=== PATIENT | female | born 1950 | race Caucasian/White ===

== ENCOUNTER → 2016-07-16 | Outpatient (CLI) | payer OTHER ==
[~2016-07-16] MED LIST: ANTIOXIDANT FO1 EACH PO; ASCORBIC ACID500 MG PO; ASPIRIN LO-DOSE81 MG PO; CIPRO500 MG PO; CRANBERRY300 MG PO; ELAVIL50 MG PO; IRON65 PO; KEFLEX250 MG PO; OMEGA-31000 MG PO; THERAGRAN-M1 TAB PO; TRUSOPT 2% OPTH10 ML OPHTH; TYLENOL325 MG PO; VITAMIN D32000 UNIT PO; VITAMIN E400 UNI2 PO; XALATAN2.5 ML OPHTH
== END | disposition disaster alternative care site (69) ==
LOC: GBCOE 11:30
DX: Z12.31 Encounter for screening mammogram for malignant neoplasm of breast (principal)
CPT/HCPCS: G0202

== ENCOUNTER → 2016-07-16 | Outpatient (CLI) | payer OTHER | END | disposition disaster alternative care site (69) | LOC: LGSMG 13:47 | DX: D64.9 Anemia, unspecified (principal) ==

== ENCOUNTER → 2016-07-24 | Outpatient (CLI) | payer OTHER ==
--- NOTE | ~2016-07-24 | ECHO ---
Transthoracic Echocardiography Report (TTE) Demographics Patient Name AMY TERESA Date of Study 07/24/2016 L Patient Number [id number] Visit Number [id number] Date of 1950 Room Number Gender Female Number Age 66 year(s) Referring Gail Hidalgo MD Post Exchange Manager Bayron RVT, RDCS Physician Danyelle Physician Interpreting Silvio John MD Bag Machine Tender Physician Supervising Ordering Gail Hidalgo MD, MD/MLP Physician Nurse Stress Fish Net Maker Conclusions Contractility Score Summary Normal Left Ventricular contractility was noted. Summary Normal LV/RV size and systolic function. The estimated left ventricular ejection fraction is 60-65%. Mild concentric left ventricular hypertrophy. Diastolic assessment reveals Grade I diastolic dysfunction. There is mild aortic regurgitation by color Doppler. Mild tricuspid regurgitation by color Doppler. Procedure Type of Study TTE procedure:2D Echocardiogram, M-Mode, Doppler , Color Doppler. Procedure Date Date: 07/24/2016 Start: 09:53 AM Study Location: Echo Lab Technical Quality: Adequate visualization Indications:Dyspnea with exertion. Appropriate Use Criteria: 9 Patient Status: Routine HR: 73 bpm BP: 111/53 mmHg M-Mode/2D Measurements LV Diastolic Dimension: 3.61 cm LV Systolic Dimension: 2.39 cm LV Septum Diastolic: 1.24 cm LV PW Diastolic: 0.98 cm AO Root Dimension: 2.9 cm Cardiac Output: 3.56 l/min AV Cusp Separation: 1.4 cm RV Diastolic Dimension: 2.47 cm LA volume: 28 ml LVOT: 1.7 cm RV Base: 3.35 cm LVOT VTI: 21.5 cm RV Mid: 2.57 cm LV Stroke volume: 48.78 ml TAPSE: 3.08 cm TDI-S': 16.1 cm/s Doppler Measurements AV Peak Velocity: 1.28 m/s MV Peak E-Wave: 0.83 m/s AV Peak Gradient: 6.55 mmHg MV Peak A-Wave: 1 m/s AV Mean Gradient: 4 mmHg MV E/A Ratio: 0.83 LVOT Peak Velocity: 1 m/s MV P1/2t: 74 msec AV P1/2t: 1055 msec TR Gradient:26.21 mmHg PV Peak Velocity: 0.86 m/s Estimated RAP:3 mmHg PV Peak Gradient: 2.95 mmHg Estimated RVSP: 29 mmHg Estimated PASP: 29.21 mmHg E' Septal Velocity: 0.08 m/s A' Septal Velocity: 0.11 m/s E' Lateral Velocity: 0.14 m/s A' Lateral Velocity: 0.18 m/s Findings Left Ventricle Mild concentric left ventricular hypertrophy. Diastolic assessment reveals Grade I diastolic dysfunction. Right Ventricle Normal right ventricle structure and function. Left Atrium Normal left atrial size. Right Atrium Normal right atrial size. Mitral Valve Mild mitral annular calcification. Trivial mitral regurgitation by color Doppler. Aortic Valve The aortic valve is moderately sclerotic. There is mild aortic regurgitation by color Doppler. Tricuspid Valve Mild tricuspid regurgitation by color Doppler. Pulmonic Valve Normal pulmonic valve structure and function. Pericardial Effusion No evidence of pericardial effusion. Pleural Effusion No evidence of pleural effusion. Contractility Score LV regional wall motion:(0-Non visualized 1-Normal 2-Hypokinesis 3-Akinesis 4-Dyskinesis 5-Aneurysm) Signature dtt: RANDI MARCUS dtd: 07/24/16 0953 Physician Self Edit
--- NOTE | ~2016-07-24 | ESTC ---
Cardiac Perfusion Imaging Demographics Patient Name BRII Wright Gender Female Patient Number [id number] Race Visit Number [id number] Ethnicity Corporate ID Room Number Accession Number [id number] Height 67 inches Date of 1950 Weight 187 pounds Bharathi Bui Date of study 07/24/2016 Physician Silvio John MD Supervising /AIMEEP Gloria Tracy APRN NM Technologist Chayo Bear Ordering Physician Gail Hidalgo MD Stress avionic technician Stress ECG Reading Gloria Tracy APRN Nurse Yossi Boykin RN Physician Maria Rothman RN The procedure was explained in detail to the patient. Risks, complications and alternative treatments were reviewed. Written consent was obtained. Procedure Procedure Type: Nuclear Stress Test:Exercise, Cardiolite Stress Test Procedure Start time: 07/24/2016 08:45 Indications: Dyspnea with exertion. Risk Factors The patient risk factors include:obesity and family history of premature CAD. Conclusions Summary Perfusion Images: The overall quality of the study is good. Left ventricular cavity is noted to be normal on the stress and normal on the rest images. There is no evidence of abnormal lung activity. The right ventricle is not visualized an cannot be assessed. Impression ECG portion of the exercise stress test is clinically negative for ischemia by diagnostic criteria. Patient walked for 6 minutes according to Robert protocol to achieve 7 METS and reached 96% of MPHR. Myocardial perfusion imaging is mildly abnormal. The images reveal a very tiny sized reversible defect in the distal anterolateral wall consistent with minimal ischemia . Overall left ventricular systolic function was normal. Calculated LVEF is 64% and TID tatio is 1.21. This is a low risk stress test. There are no previous studies for comparison . Stress Protocols Resting ECG Normal sinus rhythm. Pre-stress physical exam: Patient assessed by Kimberly BABIN prior to testing. Chest - CTA Cardio - RRR, S1, S2 Peak HR:146 bpm HR response: Appropriate Peak BP:174/68 mmHg BP response: Appropriate Predicted HR: 154 bpm HR/BP product:55872 % of predicted HR: 95 Reason for termination:Target heart rate ECG Findings No ECG changes suggestive of ischemia. Arrhythmias No rhythm abnormality. Symptoms Shortness of breath. Complications Procedure complication: None. Stress Interpretation Patient walked for 6 minutes through 2 stages of ROBERT protocol. Appropriate hemodynamic response to exercise. No significant ST-T wave changes with exercise. EKG portion is negative for ischemia by diagnostic criteria. The Sanchez Treadmill score was 3.5 .This corresponds to a moderate risk stress test. Will correlate with nuclear images. Imaging Results Summed scores - Summed stress score: 4 - Summed rest score: 0 - Summed difference score: 4 Stress ejection Ejection fraction:64 % EDV :83 ml ESV :30 ml Stroke volume :53 ml LV mass :137 gr Imaging Protocols Rest Stress Isotope:Tc99m Sestamibi IV Isotope: Tc99m Sestamibi IV Isotope dose:13.3 mCi Isotope dose:40.7 mCi Date:07/24/2016 07:32 Date:07/24/2016 09:30 Technique: SPECT Technique: Gated Supine SPECT Supine Scan Time:45-60 minutes post Scan Time:45-60 minutes post injection injection Medical History Admission Data Admission date: 07/24/2016 Admission Time: 07:07 Hospital Status: Outpatient. Signatures dtt: RANDI MARCUS dtd: 07/24/16 0845 Physician Self Edit
== END | disposition disaster alternative care site (69) ==
LOC: GRAD 07:07
DX: R06.02 Shortness of breath (principal); E66.9 Obesity, unspecified; I51.7 Cardiomegaly; I35.1 Nonrheumatic aortic (valve) insufficiency; Z86.79 Personal history of other diseases of the circulatory system; Z82.49 Family history of ischemic heart disease and other diseases of the circulatory system
CPT/HCPCS: A9500

== ENCOUNTER 2016-09-21 20:04 | Inpatient (IN) | payer OTHER, MEDICARE ==
[~2016-09-21] VITALS: Ht 171.4 cm; Wt 86.9 kg
--- NOTE | ~2016-09-21 | ER ---
PATIENT'S NAME: AMY TERESA [facility] AGE: 66 Y [address] ROOM: [place] [address] LOCATION: GPCU ADMIT DATE: 09/21/2016 ER/Outpatient Report DISCHARGE DATE: FAMILY PHYSICIAN: DOROTHY DOBSON MD ATTENDING PHYSICIAN: Kiel PEDROZA Admission date and time documented on the medical record. I saw the patient at 2015 hours. CHIEF COMPLAINT: Fever with shaking chills and dysuria. HISTORY OF PRESENT ILLNESS: This patient is a 66-year-old female, who presented to the emergency room with approximately 24-hour history of fever. She has had some shaking chills accompanied with the fever. Took Tylenol at 1800 hours prior to coming into the emergency room. Had generalized weakness. She has dysuria, frequency. Chronic diarrhea. Some nausea, but no vomiting. Lower suprapubic abdominal tenderness. Low back discomfort. No chest pain, cough, shortness of breath. No headache, eyes, ears, nose, throat, neck, or spine pain. No fall or trauma. No lightheadedness, dizziness, syncope, or near syncope. Other than present fever and symptoms, she has had no coughs, colds or flus. No joint or muscle swelling, redness, or pain. No skin eruptions or rash. No incontinence of stool or urine. No history of neuro changes, psych issues, endocrine problems. HOME MEDICATIONS: See attached medication list. ALLERGIES: REGLAN, KEFLEX, CIPRO, LEVAQUIN, AMPICILLIN. SOCIAL HISTORY: Nonsmoker, nondrinker. SIGNIFICANT PAST MEDICAL HISTORY: Cholelithiasis, nephrolithiasis, Cervical cancer, chronic diarrhea, diverticulosis, diverticulitis, recurrent urinary tract infections. OPERATIONS: Tubal ligation, lithotripsy, multiple cystoscopies with stent placements, right nephrectomy, hysterectomy, appendectomy, tonsillectomy, colon resection x2, radiation therapy, chemotherapy, ventral herniorrhaphy. REVIEW OF SYSTEMS: PATIENT'S NAME: AMY TERESA [facility] AGE: 66 Y [address] ROOM: [place] [address] LOCATION: GPCU ADMIT DATE: 09/21/2016 ER/Outpatient Report DISCHARGE DATE: FAMILY PHYSICIAN: DOROTHY DOBSON MD ATTENDING PHYSICIAN: Kiel PEDROZA All systems reviewed by me are negative with exception of those discussed in the history of present illness. PHYSICAL EXAMINATION: VITAL SIGNS: Temperature 101.1 tympanic, pulse 97 regular, respirations 16, blood pressure 123/59, O2 saturation on room air was 98%. [place] Coma Scale was 15. HEAD: Normocephalic. No abrasion, contusion, laceration, swellings of the scalp or face. EYES: Extraocular muscles intact. PERRL. EARS: Clear TMs bilaterally. NOSE: Clear. THROAT: Clear. Mucous membranes little dry. NECK: No nuchal rigidity. No thyromegaly or cervical lymphadenopathy. No tenderness to palpation. Full range of motion. SPINE: Nontender. No deformity. LUNGS: Clear. Good air flow. No rales, rhonchi, or wheezes. HEART: Regular. Pulses are palpable. No chest wall or ribcage pain to palpation. No deformity. ABDOMEN: Soft. Some suprapubic tenderness to deep palpation. No distention. No true guarding or rigidity. No rebound tenderness. Active bowel tones. No organomegaly or abnormal mass palpable. No CVA tenderness. EXTREMITIES: No peripheral edema, cyanosis, or deformity. Neurovascularly intact. SKIN: Clear. No skin eruptions or rash. IMAGING DATA: Chest x-ray showed no acute infiltrate or changes. We will review x-ray with the radiologist. LABORATORY DATA: Procalcitonin was 0.15. Lactate was 1.0. Urine showed full field whites, 10- 20 reds, 2-5 epithelial cells, many bacteria with positive nitrites on dipstick. Culture pending. Two blood cultures drawn, results pending. White count 21595, 78 segs, 11 lymphs, 10 monos, hemoglobin 10.9, hematocrit 32.6, platelet count 187,000. Protime 10.7, INR 1.02. CMS was normal except for a low potassium of 3.3, low CO2 content of 16, elevated glucose 159, low calcium of 8.1, elevated creatinine 1.5, low GFR 36. CRP was 11.50. EMERGENCY DEPARTMENT COURSE: I did start the patient on IV normal saline, fluids. Gave her 2 L in the emergency room IV then 150 mL an hour. Gave her Zofran 4 mg IV in the emergency room for nausea. Start her on meropenem 500 mg IV here in the emergency department. Time zero for this patient is 2115 hours. PATIENT'S NAME: AMY TERESA [facility] AGE: 66 Y [address] ROOM: [id number] [place] [id number] [facility] ADMIT DATE: 09/21/2016 ER/Outpatient Report DISCHARGE DATE: FAMILY PHYSICIAN: DOROTHY DOBSON MD ATTENDING PHYSICIAN: Kiel PEDROZA IMPRESSION: 1. Fever with shaking chills, rigors, generalized weakness, nausea, etiology urinary tract infection suspect SIRS with possibility of sepsis, awaiting cultures. 2. History of cervical cancer status post hysterectomy, radiation therapy, chemotherapy. She has resultant chronic diarrhea because of the radiation therapy. 3. History of nephrolithiasis with atrophied right kidney with right nephrectomy. 4. History of diverticulosis, diverticulitis. PLAN: I did discuss the patient with hospitalist, Dr. Pderoza. Dr. Pedroza did come down to the emergency room to examine the patient. We will admit the patient to PCU telemetry for further evaluation and treatment. Discussion ensued with the patient and her family regarding my findings and recommendations, they understand and agreed with treatment plan. Accumulated critical care time 30 minutes. MD NADEGE GUERRERO/modl /[id number] d: 09/21/162310 t: 09/22/16 1821, OUTPATIENT REPORT
--- NOTE | ~2016-09-21 | CON ---
PATIENT'S NAME: AMY TERESA [facility] AGE: 66 Y [address] ROOM: [id number] [place], [place] [address] LOCATION: GPCU ADMIT DATE: 09/21/2016 Consultation DISCHARGE DATE: FAMILY PHYSICIAN: DOROTHY DOBSON MD ATTENDING PHYSICIAN: Kiel GARCIA DATE OF CONSULTATION: 09/22/2016 REFERRING PHYSICIAN: JOSE RODRIGUEZ MD CHIEF COMPLAINT: Recurrent urinary tract infection. HISTORY OF PRESENT ILLNESS: The patient is a pleasant, 66-year-old female who was admitted during this hospitalization for fever with shaking chills and dysuria. She had underwent further evaluation including a urinalysis with findings including nitrite- positive urine with 500 leukocytes and many bacteria. Her white blood cell count was also slightly elevated at 13. Her serum creatinine level was 1.5. She has a long, complicated medical history including cervical cancer for which she underwent resection and radiation. Her course had been complicated by radiation cystitis and radiation involvement of her distal right ureter. She ultimately developed issues with recurrent right nephrolithiasis requiring multiple procedures over time including multiple extracorporeal shockwave lithotripsies, ureteroscopy with stone extractions, and laser lithotripsy. She was also noted on cystoscopy by Dr. Mckoy to have findings consistent with radiation cystitis. She was also noted on ureteroscopy to have radiation changes of her right ureter. She had underwent a CT scan on August 17, 2013, with findings consistent with [id number] right hydronephrosis and atrophic right kidney with normal-appearing left kidney with no left hydronephrosis. She had also had issues with recurrent urinary tract infections as well as ongoing intermittent right flank pain. She then ultimately underwent intervention with an attempt at right laparoscopic robotic-assisted radical nephrectomy, but given significant adhesions and radiation changes, we were unable to safely complete this laparoscopically, and so we converted over to an open approach with the assistance of Dr. Cortés and performed an open right nephrectomy on September 30, 2013. The patient has since been following with Dr. Mckoy routinely for her recurrent urinary tract infections. The patient states that Dr. Mckoy initially had her on some preventative Macrobid and most recently switched over to Keflex. She has denied any significant history of left flank pain. She did undergo a CT scan during this hospitalization with findings including just some mild left hydronephrosis with some perinephric stranding, but no obvious urinary calculi including no ureteral calculi on CT scan. She was admitted for hydration and antibiotic therapy, and her white blood cell count did come down this morning to 7.0, and her creatinine improved to 1.4. PATIENT'S NAME: BRII [facility] AGE: 66 Y [address] ROOM: [place] [address] LOCATION: GPCU ADMIT DATE: 09/21/2016 Consultation DISCHARGE DATE: FAMILY PHYSICIAN: DOROTHY DOBSON MD ATTENDING PHYSICIAN: Kiel GARCIA PAST MEDICAL HISTORY: 1. History of cervical cancer, status post resection and external beam radiation therapy. 2. Radiation cystitis. 3. History of nephrolithiasis. 4. Recurrent urinary tract infections. 5. Chronic diarrhea. 6. Diverticulosis. 7. Diverticulitis. 8. History of cholelithiasis. PAST SURGICAL HISTORY: 1. . 2. Appendectomy. 3. Tubal ligation. 4. Tonsillectomy. 5. Left breast biopsy. 6. Resection of cervical cancer. 7. Exploratory laparotomy for bowel obstruction and bowel resection. 8. Repair of abdominal hernia with mesh, with subsequent mesh removal. 9. Right ureteroscopy with stone removal on April 26, 2011, and February of 2010. 10. Right extracorporeal shockwave lithotripsy in December of 2010 and April of 2010. 11. Open right nephrectomy on September 30, 2013. FAMILY HISTORY: Maternal grandmother with history of bladder cancer. SOCIAL HISTORY: The patient has never smoked and denies any alcohol use. ALLERGIES: KEFLEX, REGLAN, CIPROFLOXACIN, LEVAQUIN, AND AMPICILLIN. MEDICATIONS: See hospitalization medication reconciliation. REVIEW OF SYSTEMS: A full 10+ point review of systems was performed with pertinent positive and negative findings included in the History of Present Illness. All other systems are reviewed and are otherwise negative. PHYSICAL EXAMINATION: PATIENT'S NAME: BRII [facility] AGE: 66 Y [address] ROOM: [place] [address] LOCATION: GPCU ADMIT DATE: 09/21/2016 Consultation DISCHARGE DATE: FAMILY PHYSICIAN: DOROTHY DOBSON MD ATTENDING PHYSICIAN: Kiel GARCIA VITAL SIGNS. Her temperature is 99.1 Fahrenheit, pulse 76, blood pressure 125/60, respiratory rate 20, and oxygen saturation 96% on room air. CONSTITUTIONAL: No acute distress. Hemodynamically stable. HEENT: Extraocular muscles intact. Mucous membranes moist. No drainage per ears and nose. CARDIAC: Good peripheral perfusion. RESPIRATORY: No audible wheezing. ABDOMEN: Benign. MUSCULOSKELETAL: Moves all extremities. PSYCHIATRIC: Normal affect, and answers questions appropriately. HEMATOLOGIC: No active sites of bruising or bleeding. NEUROLOGIC: No focal deficits noted. IMAGING: I personally reviewed her images from recent CT scan, consistent with findings noted above in the History of Present Illness. IMPRESSION: 1. History of recurrent urinary tract infections. 2. 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 3. Radiation cystitis. 4. History of nephrolithiasis. PLAN: I had a long discussion today with the patient regarding my findings. On her CT scan, she did not have any obvious significant obstruction, with only some mild hydronephrosis and perinephric stranding. Her creatinine did improve overnight, and I explained that she would not require any urgent interventions at this time. Would recommend that the primary team continue her antibiotics and tailor accordingly to her urine culture sensitivity. She can follow up with her primary urologist in the next 3 to [address] Mckoy to make sure that no changes need to be made to her prophylactic antibiotic regimen. Please do not hesitate to call with any questions or concerns. JOSE RODRIGUEZ MD GP/modl /[id number] d: 09/22/16 1327 t: 10/01/16 1026, CONSULTATION REPORT
--- NOTE | ~2016-09-21 | HP ---
PATIENT'S NAME: AMY TERESA [facility] AGE: 66 Y [address] ROOM: [place] [address] LOCATION: GPCU ADMIT DATE: 09/21/2016 History & Physical DISCHARGE DATE: FAMILY PHYSICIAN: DOROTHY DOBSON MD ATTENDING PHYSICIAN: Kiel GARCIA DATE OF SERVICE: CHIEF COMPLAINT: Fever and chills. HISTORY OF PRESENT ILLNESS: The patient is a 66-year-old female with past medical history of multiple urine infections; history of cervical cancer, status post resection and chemoradiation; and chronic diarrhea, secondary to radiation and bowel resection, who presents here with fever and chills. The patient reports that for the past 2 days, she has been experiencing fever and chills. T-max at home was 105.8. Also, reports episodes of chills. She also reports general fatigue and body ache. The patient has a history of chronic UTI and has had nephrectomy done in the past due to multiple urinary tract infections complicated with kidney stones. The patient is currently on cephalexin chronically and takes 250 mg daily. However, for the past 2 days or so, she had been taking 500 mg twice a day. She denies any chest pain, abdominal pain, vomiting, shortness of breath, orthopnea, leg swelling, headache, and vision change. The patient reports nausea, but no vomiting. MEDICAL HISTORY: 1. Chronic diarrhea. 2. History of cervical cancer. 3. Chronic UTI. SURGICAL HISTORY: 1. Right-sided nephrectomy. 2. Hernia repair. 3. Small-bowel resection, secondary to small-bowel obstruction. 4. Hysterectomy. FAMILY HISTORY: Dad has history of diabetes mellitus type 2. Mother has colon cancer. Brother also has colon cancer. SOCIAL HISTORY: Denies drinking and smoking. The patient is retired, secondary to her medical issues, and lives with her . PATIENT'S NAME: AMY TERESA [facility] AGE: 66 Y [address] ROOM: [place] [address] LOCATION: GPCU ADMIT DATE: 09/21/2016 History & Physical DISCHARGE DATE: FAMILY PHYSICIAN: DOROTHY DOBSON MD ATTENDING PHYSICIAN: Kiel GARCIA MEDICATIONS: Currently being reconciled. REVIEW OF SYSTEMS: All systems have been reviewed and are negative, except for what I mentioned in the HPI. PHYSICAL EXAMINATION: VITAL SIGNS: Temperature of 101, blood pressure 123/59, heart rate of 73, respiratory rate of 15, and saturating 98% on room air. GENERAL APPEARANCE: The patient is alert and awake with intermittent shivering, lying on bed in no acute distress. HEAD: Normocephalic, atraumatic. EYES: Sclerae nonicteric. Extraocular muscles intact. NOSE: No nasal discharge. EARS: No ear discharge. ORAL CAVITY: Dry oral mucosa. CHEST: Clear to auscultation. HEART: Regular rate and rhythm. No murmurs, rubs, or gallops. ABDOMEN: Soft, nontender, and nondistended. Bowel sounds present. There are multiple old surgical scars. SKIN: Warm to touch. EXTREMITIES: No edema. MUSCULOSKELETAL: Range of motion intact. No obvious joint effusion. HVAC JOURNEYMAN: The patient alert and oriented x3. Motor and sensory are grossly intact. LABORATORY DATA: Lactate of 1. White blood cell count of 13, hemoglobin 10, platelets of 187. Glucose of 159, BUN of 18, creatinine of 1.5, sodium of 135, potassium of 3.3, CO2 of 16.1, albumin of 3.3, procal of 0.15, CRP of 11.5. UA shows bacteria, rbc of 10-20, and many white blood cells. Chest x-ray shows no cardiopulmonary changes. ASSESSMENT AND PLAN: 1. Sepsis diagnosed at 2115 hours. Etiology secondary to urinary tract infection as the patient is presenting with dysuria and fever and chills with known history of chronic urinary tract infection. The patient has a history of kidney stone and also UA shows red blood cells that is elevated. We will acquire CT of abdomen and pelvis to rule out obstructive pyelonephritis. The patient currently on meropenem. We will continue meropenem for now. Blood culture x2 and urine culture has been taken before antibiotics. The patient has received 2 L of IV fluid. We PATIENT'S NAME: AMY TERESA [facility] AGE: 66 Y [address] ROOM: [place] [address] [facility] AD[facility] DATE: 09/21/2016 History & Physical DISCHARGE DATE: FAMILY PHYSICIAN: DOROTHY DOBSON MD ATTENDING PHYSICIAN: Kiel GARCIA will give another 1 L of IV fluid bolus and start the patient on maintenance drip of 100 mL an hour of normal saline. The patient to receive 30 mL/kg of IV fluid bolus. We will await for blood culture, urine culture, and continue antibiotics. If the CT abdomen shows any obstructive physiology, we will consult Urology or IR for intervention. 2. Urinary tract infection, see problem #1. 3. Dehydration, secondary to chronic diarrhea. Continue IV fluids. 4. Metabolic acidosis. Etiology most likely secondary to chronic diarrhea. To continue IV fluids and supplement with oral bicarb. 5. History of chronic diarrhea, secondary to radiation and multiple small bowel obstructions. Continue IV fluid and continue supportive treatment. 6. Chronic kidney disease, ongoing, status post right nephrectomy. Greater than 70 minutes spent on patient care. Greater than 50% of the time was spent on direct patient care. Assessment and plan was discussed with the patient and family. The patient's and family's questions were answered to their satisfaction. Case also discussed with the ER physician. We will admit the patient for sepsis, secondary to urinary tract infection. Code status discussed code on admission. CODE STATUS: Full code. MD ANAI CORDERO/carri /[id number] D: [id number] T: [id number] HISTORY & PHYSICAL
--- NOTE | ~2016-09-21 | DS ---
PATIENT'S NAME: [facility]II [facility] AGE: 66 Y [address] ROOM: [id number] [place], [place] [address] LOCATION: [facility]PCU ADMIT DATE: 09/21/2016 Discharge Summary DISCHARGE DATE: 09/24/2016 FAMILY PHYSICIAN: Rocky Reynolds MD ATTENDING PHYSICIAN: Kiel Pedroza PRINCIPAL DIAGNOSES: 1. Sepsis, secondary to acute pyelonephritis. 2. Recurrent urinary tract infection. 3. Radiation cystitis. 4. Normocytic anemia. 5. Chronic diarrhea. BRIEF HOSPITAL COURSE: This is a 66-year-old female with a known history of recurrent urinary tract infection presented with fevers, chills, and sepsis picture relating to urinary tract infection and was found to have a Pseudomonas UTI. The patient was given Rocephin antibiotics during her hospitalization in an IV form and later switched to p.o. ciprofloxacin, which Pseudomonas was sensitive to. The patient is noted to have a history of chronic diarrhea, which worsens with antibiotic therapy including fluoroquinolone therapy. However, the patient has been fairly well-tolerating ciprofloxacin she has been getting p.o. at the hospital and we will continue this to finish a total of 10 days course of antibiotics. The patient was also noted to have a mild hydronephrosis and was seen by Urology and she will follow up with Dr. Mckoy whom she had been following up with closely as outpatient as well to monitor hydronephrosis. At this point, the patient is afebrile in the last 48 hours, tolerating p.o. intake very well, and ambulating well as well. PHYSICAL EXAMINATION: GENERAL: The patient is awake, alert, oriented x3, in no acute distress. LUNGS: Clear to auscultation bilaterally. HEART: S1, S2, regular rate and rhythm. ABDOMEN: Soft, nontender, nondistended. EXTREMITIES: Without edema. DISPOSITION: Home. FOLLOW UP: Follow up with Urology in 3 to 4 weeks. MEDICATIONS: Per MAR including Cipro 500 b.i.d. to finish 10 day course and she will follow up that with suppressive cephalexin 150 mg p.o. daily as has been prescribed by her urologist in the past. Less than 30 minutes were spent in discharge planning and facilitating. PATIENT'S NAME: [facility]II [facility] AGE: 66 Y [address] ROOM: [id number] [place], [place] [address] LOCATION: [facility] ADMIT DATE: 09/21/2016 Discharge Summary DISCHARGE DATE: 09/24/2016 FAMILY PHYSICIAN: Rocky Reynolds MD ATTENDING PHYSICIAN: Kiel Pedroza MD MEET JONES/carri /[id number] d: 09/25/16 0330 t: 09/30/16 1404, DISCHARGE SUMMARY
[2016-09-21 20:27] LABS: BILIRUBIN URINE NEGATIVE (NEGATIVE); BLOOD URINE 150 /UL (NEGATIVE); COLOR URINE YELLOW (YELLOW); GLUCOSE URINE NEGATIVE (NEGATIVE); KETONE URINE NEGATIVE (NEGATIVE); LEUKOCYTES URINE 500 /UL (NEGATIVE); NITRITE URINE POSITIVE (NEGATIVE); PROTEIN URINE 100 mg/dL (NEGATIVE); SPEC GRAVITY URINE 1.015 (1.003-1.035); TURBIDITY URINE 2+ (CLEAR); UROBILINOGEN URINE NORMAL (NORMAL)
[2016-09-21 20:34] LABS: WBC URINE FULL FIELD #/HPF (NEGATIVE)
[2016-09-21 20:36] LABS: BACTERIA URINE MANY (NEGATIVE)
[2016-09-21 20:42] LABS: BASOPHIL % 0.2 %; EOSINOPHIL % 0.1 %; HEMATOCRIT 32.6 % (33.0-46.0); HEMOGLOBIN 10.9 g/dL (10.0-15.0); IMMATURE GRANULOCYTE # 0.1 K/uL (0.0-0.3); IMMATURE GRANULOCYTE % 0.5 %; LYMPHOCYTE # 1.4 K/uL (0.8-4.0); MCH 29.5 pg (27.0-34.0); MCHC 33.4 gm/dL (32.0-36.5); MCV 88.3 fl (83.0-98.0); MONOCYTE # 1.3 K/uL (0.0-1.0); MONOCYTE % 9.8 %; MPV 10.2 fl (9.4-12.4); NEUTROPHIL # (ANC) 10.2 K/uL (1.8-7.8); NEUTROPHIL % 78.4 %; NRBC % 0 /100WBC (0-0.00); PLATELET COUNT 187 K/uL (150-450); RBC 3.69 M/uL (3.50-5.50); RDW-CV 15.4 % (11.9-14.6)
[2016-09-21 20:51] LABS: INR - (THERAPEUTIC) 1.02 (0.92-1.07); PROTIME 10.7 SECONDS (9.8-11.4)
[2016-09-21 21:01] LABS: ALBUMIN 3.3 gm/dL (3.5-5.0); ANION GAP 13.3 (10.0-19.0); CALCIUM 8.1 mg/dL (8.5-10.5); CREATININE 1.5 mg/dL (0.5-1.1); POTASSIUM 3.3 mMol/L (3.7-5.1); TOTAL BILIRUBIN 0.5 mg/dL (0.0-1.5); TOTAL PROTEIN 7.6 g/dL (6.0-8.4)
[2016-09-21] MEDS ORDERED: ELAVIL50 MG PO (23:46)
[2016-09-21] MEDS ORDERED: KEFLEX250 MG PO (23:47)
[2016-09-21] MEDS ORDERED: TRUSOPT 2% OPTH10 ML OPHTH (23:49)
[2016-09-21] MEDS ORDERED: XALATAN2.5 ML OPHTH (23:50)
[2016-09-21] MEDS ORDERED: THERAGRAN-M1 TAB PO (23:53)
[2016-09-21] MEDS ORDERED: TYLENOL325 MG PO (23:53)
[2016-09-21] MEDS ORDERED: VITAMIN D32000 UNIT PO (23:54)
[2016-09-21] MEDS ORDERED: OMEGA-31000 MG PO (23:55)
[2016-09-21] MEDS ORDERED: ANTIOXIDANT FO1 EACH PO (23:55)
[2016-09-21] MEDS ORDERED: VITAMIN E400 UNI2 PO (23:57)
[2016-09-21] MEDS ORDERED: ASCORBIC ACID500 MG PO (23:57)
[2016-09-21] MEDS ORDERED: CRANBERRY300 MG PO (23:58)
[2016-09-21] MEDS ORDERED: ASPIRIN LO-DOSE81 MG PO (23:58)
[2016-09-21] MEDS ORDERED: IRON65 PO (23:59)
[2016-09-22 03:26] LABS: BASOPHIL % 0.1 %; EOSINOPHIL % 0.3 %; HEMATOCRIT 28.6 % (33.0-46.0); HEMOGLOBIN 9.3 g/dL (10.0-15.0); IMMATURE GRANULOCYTE # 0.1 K/uL (0.0-0.3); IMMATURE GRANULOCYTE % 0.7 %; LYMPHOCYTE # 0.8 K/uL (0.8-4.0); LYMPHOCYTE % 11.7 %; MCH 29.5 pg (27.0-34.0); MCHC 32.5 gm/dL (32.0-36.5); MCV 90.8 fl (83.0-98.0); MONOCYTE # 0.7 K/uL (0.0-1.0); MONOCYTE % 9.7 %; MPV 10.1 fl (9.4-12.4); NEUTROPHIL # (ANC) 5.4 K/uL (1.8-7.8); NEUTROPHIL % 77.5 %; NRBC % 0 /100WBC (0-0.00); RBC 3.15 M/uL (3.50-5.50); RDW-CV 15.8 % (11.9-14.6)
[2016-09-22 03:30] LABS: PLATELET COUNT 142 K/uL (150-450)
[2016-09-22 03:43] LABS: ALBUMIN 2.5 gm/dL (3.5-5.0); CALCIUM 7.5 mg/dL (8.5-10.5); CREATININE 1.4 mg/dL (0.5-1.1); POTASSIUM 3.7 mMol/L (3.7-5.1); TOTAL BILIRUBIN 0.4 mg/dL (0.0-1.5); TOTAL PROTEIN 5.9 g/dL (6.0-8.4)
[2016-09-22 03:46] LABS: ANION GAP 11.7 (10.0-19.0)
[2016-09-23 04:57] LABS: BASOPHIL % 0.3 %; EOSINOPHIL # 0.2 K/uL (0.0-0.5); EOSINOPHIL % 2.4 %; HEMATOCRIT 25.7 % (33.0-46.0); HEMOGLOBIN 8.1 g/dL (10.0-15.0); IMMATURE GRANULOCYTE % 0.5 %; LYMPHOCYTE # 1.4 K/uL (0.8-4.0); MCH 28.9 pg (27.0-34.0); MCHC 31.5 gm/dL (32.0-36.5); MCV 91.8 fl (83.0-98.0); MONOCYTE # 0.7 K/uL (0.0-1.0); MONOCYTE % 11.3 %; MPV 10.7 fl (9.4-12.4); NEUTROPHIL # (ANC) 3.9 K/uL (1.8-7.8); NEUTROPHIL % 63.5 %; NRBC % 0 /100WBC (0-0.00); PLATELET COUNT 126 K/uL (150-450); RDW-CV 15.9 % (11.9-14.6); WBC 6.2 K/uL (4.0-11.0)
[2016-09-23 05:12] LABS: ALBUMIN 2.2 gm/dL (3.5-5.0); ANION GAP 12.3 (10.0-19.0); CREATININE 1.3 mg/dL (0.5-1.1); MAGNESIUM 1.9 mg/dL (1.8-2.6); POTASSIUM 3.3 mMol/L (3.7-5.1); TOTAL PROTEIN 5.4 g/dL (6.0-8.4)
[2016-09-23 05:14] LABS: CALCIUM 7.3 mg/dL (8.5-10.5); TOTAL BILIRUBIN 0.2 mg/dL (0.0-1.5)
[2016-09-24 04:03] LABS: BASOPHIL % 0.2 %; EOSINOPHIL # 0.3 K/uL (0.0-0.5); EOSINOPHIL % 5.7 %; HEMATOCRIT 25.7 % (33.0-46.0); HEMOGLOBIN 8.2 g/dL (10.0-15.0); IMMATURE GRANULOCYTE % 0.4 %; LYMPHOCYTE # 1.3 K/uL (0.8-4.0); LYMPHOCYTE % 26.5 %; MCH 29.1 pg (27.0-34.0); MCHC 31.9 gm/dL (32.0-36.5); MCV 91.1 fl (83.0-98.0); MONOCYTE # 0.5 K/uL (0.0-1.0); MONOCYTE % 9.1 %; MPV 10.4 fl (9.4-12.4); NEUTROPHIL # (ANC) 2.9 K/uL (1.8-7.8); NEUTROPHIL % 58.1 %; NRBC % 0 /100WBC (0-0.00); RBC 2.82 M/uL (3.50-5.50); RDW-CV 15.9 % (11.9-14.6); WBC 5.1 K/uL (4.0-11.0)
[2016-09-24 04:04] LABS: PLATELET COUNT 166 K/uL (150-450)
[2016-09-24 04:21] LABS: ALBUMIN 2.4 gm/dL (3.5-5.0); ANION GAP 12.8 (10.0-19.0); CALCIUM 7.9 mg/dL (8.5-10.5); CREATININE 1.3 mg/dL (0.5-1.1); POTASSIUM 3.8 mMol/L (3.7-5.1); TOTAL BILIRUBIN 0.2 mg/dL (0.0-1.5); TOTAL PROTEIN 5.9 g/dL (6.0-8.4)
[2016-09-24] MEDS ORDERED: CIPRO500 MG PO (12:54)
== END 2016-09-24 14:45 | disposition disaster alternative care site (69) | DRG 872 ==
LOC: GMED 20:04 → GPCU 21:54
PROVIDERS: Emergency Medicine; ADMIT Internal Medicine
DX: A41.9 Sepsis, unspecified organism (principal); N17.9 Acute kidney failure, unspecified; E87.2 Acidosis; Q60.0 Renal agenesis, unilateral; N12 Tubulo-interstitial nephritis, not specified as acute or chronic; N39.0 Urinary tract infection, site not specified; D64.9 Anemia, unspecified; K52.9 Noninfective gastroenteritis and colitis, unspecified; N18.3 Chronic kidney disease, stage 3 (moderate); Z85.41 Personal history of malignant neoplasm of cervix uteri
CPT/HCPCS: J1335; J1644; J2185; J2405; J7030; J7040